=== PATIENT | male | born 1975 | race Caucasian/White ===

== ENCOUNTER → 2021-04-03 | Outpatient (CLI) | payer MEDICAID ==
[~2021-04-03] MED LIST: AMLODIPINE BESY10 MG PO; ASPIRIN EC81 MG PO; ATORVASTATIN CA40 MG PO; CARDIZEM CD120 MG PO; CARDIZEM CD240 MG PO; CARVEDILOL12.5 MG PO; ECOTRIN81 MG PO; HYDROCHLOROTHIA25 MG PO; IBU800 MG PO; IMDUR ER TAB 3030 MG PO; LISINOPRIL20 MG PO; LOTENSIN20 MG PO; METOPROLOL SUCC50 MG PO; NITROSTAT0.4 MG SL; NORCO 5-325 TA1 EACH PO; PROTONIX40 MG PO; ROBAXIN-750750 MG PO; SPIRONOLACTONE25 MG PO; TRANDATE 100 M100 MG PO; VALSARTAN80 MG PO
== END ==
LOC: NM 08:25
DX: R94.31 Abnormal electrocardiogram [ECG] [EKG] (principal); R07.9 Chest pain, unspecified; R06.02 Shortness of breath; I51.7 Cardiomegaly
CPT/HCPCS: ECHO; 78452; 93017; 93306; A9502; J2785

== ENCOUNTER 2021-09-06 06:52 | Emergency (ER) | payer SELFPAY ==
[2021-09-06 07:50] LABS: HEMOGLOBIN 16.9 gm/dl (14.0-17.5); RED BLOOD COUNT 5.49 M/UL (4.20-5.50); WHITE BLOOD COUNT 12.6 K/UL (4.5-11.0)
[2021-09-06 08:29] LABS: BUN/CREATININE RATIO 17 (0-10)
[2021-09-06] MEDS ORDERED: CEFUROXIME500 MG PO (09:40)
== END 2021-09-06 09:55 | disposition home or self-care (01) ==
LOC: ER1 06:52
PROVIDERS: Preventive Medicine Occupational Medicine
DX: R31.9 Hematuria, unspecified (principal); E11.9 Type 2 diabetes mellitus without complications
CPT/HCPCS: 80053; 81001; 85025; 85652; 86140; 87077; 87086; 87186; 96374; 96375; 99284; J0696; J1170; J2405

== ENCOUNTER 2022-03-21 13:34 | Emergency (ER) | payer OTHER ==
[~2022-03-21 13:34] MED LIST changes: +CEFUROXIME500 MG PO
[2022-03-21 14:27] LABS: HEMOGLOBIN 16.1 gm/dl (14.0-17.5); RED BLOOD COUNT 5.39 M/UL (4.20-5.50); WHITE BLOOD COUNT 8.1 K/UL (4.5-11.0)
[2022-03-21 14:42] LABS: BUN/CREATININE RATIO 11 (0-10)
[2022-03-21] MEDS ORDERED: AMOX TR-K CLV1 EAC4 PO (17:19)
== END 2022-03-21 18:30 | disposition home or self-care (01) ==
LOC: ER1 13:34
PROVIDERS: Emergency Medicine
DX: R10.9 Unspecified abdominal pain (principal); E78.5 Hyperlipidemia, unspecified; I10 Essential (primary) hypertension; Z87.442 Personal history of urinary calculi
CPT/HCPCS: 80053; 81001; 82550; 82553; 84484; 85025; 85379; 96374; 96375; 96376; 99284; J2270; J2405